=== PATIENT | female | born 1935 | race Caucasian/White ===

== ENCOUNTER → 2017-08-12 | Outpatient (CLI) | payer OTHER ==
[2017-08-12 14:32] LABS: ABSOLUTE LYMPHOCYTES 0.7 thou/uL (0.8-5.3); ABSOLUTE MONOCYTES 0.3 thou/uL (0.0-1.2); ABSOLUTE NEUTROPHILS 1.9 thou/uL (1.6-8.1); BASOPHILS 0.3 %; EOSINOPHILS 0.4 %; HEMATOCRIT 31.6 % (37.0-47.0); HEMOGLOBIN 10.6 gm/dL (12.0-15.0); LYMPHOCYTES 22.7 %; MCH 33.4 pg (26.0-34.0); MCHC 33.5 g/dL (28.0-37.0); MCV 99.6 fL (80.0-100.0); MONOCYTES 9.7 %; MPV 7.4 fl. (7.2-11.1); NUCLEATED RBCS 0 /100WBC; PLATELET COUNT* 157 thou/uL (150-400); POLYS 66.9 %; RBC 3.18 mil/uL (4.20-5.00); WBC 2.9 thou/uL (4.0-11.0)
[2017-08-12 14:47] LABS: ALBUMIN 3.4 g/dL (3.4-5.0); CALCIUM 8.5 mg/dL (8.5-10.1); CREATININE 1.1 mg/dL (0.6-1.3); POTASSIUM 4.1 mmol/L (3.5-5.1); TOTAL BILIRUBIN 0.4 mg/dL (<0.1-1.0)
[2017-08-12 15:06] LABS: % SATURATION 19 % (20-39); IRON 58 ug/dL (50-175)
[2017-08-13 22:09] LABS: KAPPA FREE LIGHT CHAINS 1914.5 mg/L (3.3-19.4); LAMBDA FREE LIGHT CHAINS 26.5 mg/L (5.7-26.3)
[2017-08-14 09:09] LABS: GLOBULIN TOTAL 2.3 (2.2-3.9); M-SPIKE Not Observed g/dL (Not Observed)
== END ==
LOC: M.LAB 14:08
DX: C90.00 Multiple myeloma not having achieved remission (principal)

== ENCOUNTER → 2018-01-12 | Outpatient (CLI) | payer OTHER ==
[2018-01-12 11:21] LABS: ABSOLUTE LYMPHOCYTES 0.6 thou/uL (0.8-5.3); ABSOLUTE MONOCYTES 0.3 thou/uL (0.0-1.2); ABSOLUTE NEUTROPHILS 2.5 thou/uL (1.6-8.1); BASOPHILS 0.6 %; EOSINOPHILS 0.2 %; HEMATOCRIT 31.1 % (37.0-47.0); HEMOGLOBIN 10.5 gm/dL (12.0-15.0); LYMPHOCYTES 17.1 %; MCH 33.6 pg (26.0-34.0); MCHC 33.7 g/dL (28.0-37.0); MCV 99.5 fL (80.0-100.0); MONOCYTES 8.7 %; MPV 7.5 fl. (7.2-11.1); NUCLEATED RBCS 0 /100WBC; PLATELET COUNT* 164 thou/uL (150-400); POLYS 73.4 %; RBC 3.12 mil/uL (4.20-5.00); RDW-CV 13.4 % (10.5-14.5); WBC 3.5 thou/uL (4.0-11.0)
[2018-01-12 11:32] LABS: ALBUMIN 3.4 g/dL (3.4-5.0); CALCIUM 9.1 mg/dL (8.5-10.1); CREATININE 1.7 mg/dL (0.6-1.3); TOTAL BILIRUBIN 0.4 mg/dL (<0.1-1.0); TOTAL PROTEIN 6.5 g/dL (6.4-8.2)
[2018-01-13 09:10] LABS: IgA 87 mg/dL (64-422); IgG 747 mg/dL (700-1600); IgM 51 mg/dL (26-217)
[2018-01-13 14:16] LABS: KAPPA FREE LIGHT CHAINS 8.1 mg/L (3.3-19.4); LAMBDA FREE LIGHT CHAINS 32.3 mg/L (5.7-26.3)
[2018-01-14 17:12] LABS: GLOBULIN TOTAL 2.6 g/dL (2.2-3.9); M-SPIKE Not Observed g/dL (Not Observed)
== END ==
LOC: M.LAB 11:03
DX: C90.00 Multiple myeloma not having achieved remission (principal); D63.1 Anemia in chronic kidney disease